=== PATIENT | female | born 1955 | race Caucasian/White ===

== ENCOUNTER 2017-08-11 05:12 | Emergency (ER) | payer BC ==
[~2017-08-11] VITALS: Ht 165.1 cm; Wt 84.8 kg
[~2017-08-11 05:12] MED LIST: CRESTOR10 MG OR; CRESTOR10 MG PO; NEXIUM40 M1 OR; TRICOR145 MG PO; ULTRAM50 M1 PO; VYTORIN 10/401 TAB OR
[2017-08-11] MEDS ORDERED: MEDDOSEPAK PO (07:06)
[2017-08-11 07:11] VITALS: BP 136/84
== END 2017-08-11 07:15 | disposition home or self-care (01) | DRG 923 ==
LOC: ED 05:12
DX: T78.1XXA Other adverse food reactions, not elsewhere classified, initial encounter (principal); R13.10 Dysphagia, unspecified; J39.2 Other diseases of pharynx

== ENCOUNTER → 2018-11-10 | Outpatient (REF) ==
[~2018-11-10] MED LIST changes: +MEDDOSEPAK PO
== END | disposition home or self-care (01) | DRG 641 ==
LOC: LAB 07:56
DX: E55.9 Vitamin D deficiency, unspecified (principal); E78.5 Hyperlipidemia, unspecified; E53.9 Vitamin B deficiency, unspecified; E78.1 Pure hyperglyceridemia